=== PATIENT | male | born 1975 | race Caucasian/White ===

== ENCOUNTER → 2021-02-01 | Outpatient (CLI) | payer OTHER ==
[~2021-02-01] MED LIST: CIPRO HC OTIC S10 ML EARBOTH; DIFLUCAN150 MG PO; FLAGYL500 MG PO; ZITHROMAX1 GM PO
== END ==
LOC: HEART 5 15:00
DX: M79.662 Pain in left lower leg (principal); R93.6 Abnormal findings on diagnostic imaging of limbs

== ENCOUNTER → 2021-07-21 | Outpatient (CLI) | payer OTHER | LOC: KOH-I 12:27 | DX: M25.562 Pain in left knee (principal) | CPT/HCPCS: 73564 ==

== ENCOUNTER 2021-09-30 23:08 | Emergency (ER) | payer OTHER ==
[2021-10-01 01:21] LABS: HEMOGLOBIN 16.5 gm/dl (14.0-17.5); RED BLOOD COUNT 5.44 M/UL (4.20-5.50); WHITE BLOOD COUNT 16.9 K/UL (4.5-11.0)
[2021-10-01 01:49] LABS: BUN/CREATININE RATIO 18 (0-10)
== END 2021-10-01 03:28 | disposition home or self-care (01) ==
LOC: ER1 23:08
PROVIDERS: Physician Assistant
DX: R07.89 Other chest pain (principal); Z20.822 Contact with and (suspected) exposure to COVID-19; F17.200 Nicotine dependence, unspecified, uncomplicated; I11.9 Hypertensive heart disease without heart failure; E11.9 Type 2 diabetes mellitus without complications
CPT/HCPCS: 71045; 80053; 82550; 82553; 83874; 83880; 84484; 85025; 85379; 85610; 85730; 87086; 93005; 96372; 99285; J1885; U0002

== ENCOUNTER → 2022-02-21 | Outpatient (CLI) | payer OTHER | LOC: CT 11:57 | DX: E11.51 Type 2 diabetes mellitus with diabetic peripheral angiopathy without gangrene (principal); I70.212 Atherosclerosis of native arteries of extremities with intermittent claudication, left leg; F17.219 Nicotine dependence, cigarettes, with unspecified nicotine-induced disorders; I10 Essential (primary) hypertension; Z79.899 Other long term (current) drug therapy; Z79.02 Long term (current) use of antithrombotics/antiplatelets; I74.5 Embolism and thrombosis of iliac artery; I72.4 Aneurysm of artery of lower extremity | CPT/HCPCS: 36415; 75635; 82565; 84520; Q9967 ==

== ENCOUNTER 2022-03-28 18:47 | Emergency (ER) | payer OTHER | END 2022-03-28 19:23 | disposition left against medical advice (07) | LOC: ER1 18:47 | DX: Z53.21 Procedure and treatment not carried out due to patient leaving prior to being seen by health care provider (principal) ==